=== PATIENT | female | born 1985 | race Caucasian/White ===

== ENCOUNTER 2016-08-17 18:51 | Emergency (ER) | payer MEDICAID ==
[~2016-08-17] VITALS: Ht 182.9 cm; Wt 97.7 kg
[2016-08-17 18:52] VITALS: BP 152/94
== END 2016-08-17 20:19 | disposition home or self-care (01) ==
LOC: ED 20:00
DX: H66.91 Otitis media, unspecified, right ear (principal); B30.9 Viral conjunctivitis, unspecified; Z88.0 Allergy status to penicillin
CPT/HCPCS: 99283